=== PATIENT | female | born 1965 | race Caucasian/White ===

== ENCOUNTER 2021-11-19 13:32 | Emergency (ER) | payer BC ==
--- OUTSIDE RECORDS SUMMARY | 2021-11-19 13:36 | XMS REPORT | Continuity of Care Document ---
:1965 Author Organization [facility] t Address [address] [place] [address] Care Team Providers Name Role Phone Pcp, Does Not Have A Primary Care Physician Rohith DERAS M Attending Clinician DEREK Attending Clinician Unavailable DEREK Attending Clinician Unavailable Meet Jacobo Attending Clinician Ricky REGISTERED RADIOGRAPHER Attending Clinician RICKY Attending Clinician Unavailable Doctor Unassigned, Name Attending Clinician Unavailable DEREK Admitting Clinician Unavailable Payers Payer Name Policy Type Policy Number Effective Date Expiration Date S ource Problems Condition Condition Condition Status Onset Resolution Last Treating Co mments Source Name Details Category Date Date Treatment Clinician Date Complicate Complicate Disease Active U nivers d UTI d UTI 10-30 ity of (urinary (urinary 00:00: [place] tract tract 00 Medical infection) infection) Br anch No known No known Disease Unive rs active active ity of problems problems [facility] Allergies, Adverse Reactions, Alerts Allergy Allergy Status Severity Reaction(s) Onset Inactive Treating Comm ents Source Name Type Date Date Clinician SULFA Drug Active High Rash Univers (SULFONA Class 5-31 ity of MIDE 00:00: [place] ANTIBIOT 00 Medical ICS) Branch Sulfa Propensi Active Rash Univers (Sulfona ty to 5-31 ity of mide adverse 00:00: [place] Antibiot reaction 00 Medica l ics) s Branch NO KNOWN Drug Active Univers ALLERGIE Class ity of S [facility] Social History Social Habit Start Date Stop Date Quantity Comments Source Exposure to 2021-10-20 2021-10-30 Unable to assess Univers ity of SARS-CoV-2 00:00:00 11:49:00 [facility] (event) Assawoman Sex Ass[birth year] Universit y of 00:00:00 00:00:00 [facility] Smoking Status Start Date Stop Date Source Unknown if ever smoked [facility] Medications Ordered Filled Start Stop Current Ordering Indication Dosage Frequency Signature Comments Components Source Medication Medication Date Date Medication? Clinician (SIG) Name Name KCL 20 2021-0 2021- No 40meq 40 mEq, Univer s mEq/15 mL 10-31 Oral, ity of solution 40 15:15: 15:30 [place]CE, 1 [place] mEq 00 :00 dose, On Medical Fri10/31/21 Branch at 1015, Routine enoxaparin Yes 40mg 40 mg, Unive rs (LOVENOX) 10-31 Subcutaneo ity of injection 14:00: [place], [place]ILY, [place] 40 mg 00 First dose Medical on Fri Branch 10/31/21 at 0900, Until Discontinu ed, Routine dextrose Yes 250mL 250 mL, IV Un sienna 10% (D10W) 10-31 Infusion, ity of bolus 11:15: PRN - SEE [place] infusion 16 INSTRUCTIO Medic al 250 mL NS, Branch hypoglycem ia, Starting on Fri10/31/21 at 0615
De xtrose 10% 250 mL bag contains:& nbsp;10 gm = 100 mL 20 gm = 200 mL 25 gm = 250 mL (whole bag) The maximum rate at which dextrose can be infused without producing glycosuria is 0.5 g/kg/hour. &nbs p;BUD: If wrapper is open bag is good for 30 days at room temperatur e. <b r> glucagon Yes 1mg 1 mg, Univers (GLUCAGEN 10-31 Intramuscu ity of DIAGNOSTIC 11:15: [place], PRN, [place] KIT) 13 Starting Medical injection 1 on Fri Branch mg 10/31/21 at 0615, Until Discontinu ed, [place], Blood Glucose < or = 70 mg/dL and patient is unable to swallow or has mental changes. cefdinir 2021- Yes [id number] 300mg Take 1 U nivers 300 mg 10-31 capsule by ity of capsule 00:00: 04:59 mouth [place] 00 :00 every 12 Medical (twelve) Branch hours for 5 days. cefdinir 2021- Yes [id number] 300mg Take 1 U nivers 300 mg 10-31 capsule by ity of capsule 00:00: 04:59 mouth [place] 00 :00 every 12 Medical (twelve) Branch hours for 5 days. NaCl 0.9% Yes 1000mL at 125 Univ ers (NS) IV 5-31 mL/hr, IV ity of infusion 23:45: In[place] 1,000 mL 00 CONTINUOUS Medic al , Starting Branch on 10/30/21 at 1845, Until Discontinu ed, Routine LORazepam Yes .5mg 0.5 mg, Unive rs (ATIVAN) 10-30 Oral, ity of tablet 0.5 23:44: TIDPRN[place] mg 00 Starting Medical on [facility] 10/30/21 at 1844, Until Discontinu ed, Routine, Anxiety ondansetron Yes 4mg 4 mg, Slow Univers (ZOFRAN 10-30 IV Push, ity of (PF)) 23:34: Q6HPRN, [place] injection 4 17 Starting Medi kristi mg on [facility] 10/30/21 at 1834, Until Discontinu ed, Routine, Nausea and Vomiting (N/V) morpHINE (4 2021- Yes 4mg 4 mg, Slow Univers mg/mL) 10-30 IV Push, ity of injection 4 23:34: 23:33 Q4HPRN, [place] mg 15 :15 Starting Medical on [facility] 10/30/21 at 1834, Until Fri10/31/21 at 1833, Routine, Pain (scale 7-10) HYDROcodone 2021- Yes 1{tbl} 1 tablet, Univers -acetaminop 10-30 Oral, ity of hen (NORCO 23:34: 23:33 Q6HPRN, [place] 5) 5-325 mg 12 :12 Starting Medi kristi tablet 1 on [facility] tablet 10/30/21 at 1834, Until [place] 11/01/21 at 1833, Routine, Pain (scale 4-6) acetaminoph Yes 650mg 650 mg, Un sienna en 10-30 Oral, ity of (TYLENOL) 23:34: [place] tablet 650 09 Starting Medic al mg on [facility] Branch 10/30/21 at 1834, Until Discontinu ed, Routine, Pain (scale 1-3) NaCl 0.9% 2021- No 1000mL at 100 Uni vers (NS) IV 10-3031 mL/hr, IV ity of infusion 22:15: 21:21 Infusion, [place] 1,000 mL 00 :00 ONCE, 1 Medical dose, On Branch Fri10/30/21 at 1715, [place] cefTRIAXone 2021- No 1000mg 1,000 mg, Univers (ROCEPHIN) 10-30 IV ity of 1,000 mg in 20:00: 19:52 [place], [place] NaCl 0.9% 00 :00 ONCE, 1 Medical (NS) 50 mL dose, On [facility] h MINI-BAG [facility] 10/30/21 at 1500, Administer over 30 Minutes, 50 mL
Reas on for Anti-Infec tive: Documented Infection< br>Documen mague Infection Site: Urine<br&g t;Duration of Therapy: Other (see Comments) NaCl 0.9% 2021- No 1000mL at 999 Uni vers (NS) bolus 10-30 mL/hr, ity of infusion 20:00: 21:10 1,000 mL, [place] 1,000 mL 00 :00 IV Medical Infusion, Branch ONCE, 1 dose, On Fri10/30/21 at 1500, [place] No known No Univers medications 10-30 ity of 09:59: [address] No known 0 No Univers medications 10-30 ity of 09:59: [address] Immunizations Ordered Filled Immunization Date Status Comments Sour e Immunization Name Name SARS-COV-2 COVID-19 2020-08-10 [facility]/J&J VACCINE 00:00:00 [place] [facility] SARS-COV-2 COVID-19 2020-08-10 Completed Unive rsity of ALTAGRACIA/J&J VACCINE 00:00:00 [facility] SARS-COV-2 COVID-19 2020-08-10 Completed Unive rsity of ALTAGRACIA/J&J VACCINE 00:00:00 [facility] SARS-COV-2 COVID-19 2020-08-10 Completed Unive rsity of ALTAGRACIA/J&J VACCINE 00:00:00 [facility] Vital Signs Vital Name Observation Time Observation Value Comments Source Systolic blood 2021-10-31 13:42:00 106 mm[Hg] Univer sity of pressure [facility] Diastolic blood 2021-10-31 13:42:00 75 mm[Hg] Unive rsity of pressure [facility] Heart rate 2021-10-31 13:42:00 95 /min Universi ty [facility] Body temperature 2021-10-31 13:42:00 36.83 [facility] ers[facility] of [facility] Respiratory rate 2021-10-31 13:42:00 18 /min Univ ersity of [facility] Oxygen saturation in 2021-10-31 13:42:00 99 /min University of Arterial blood by [place] [employer] [facility] Pulse oximetry Branch Body height 2021-10-30 23:06:00 167.6 cm [facility] Body weight 2021-10-30 23:06:00 48.535 kg [facility] BMI 2021-10-30 23:06:00 17.27 kg/m2 [facility] Heart rate 2021-10-30 15:29:00 122 /min [facility] Oxygen saturation in 2021-10-30 15:29:00 97 /min University of Arterial blood by [place] [employer] [facility] Pulse oximetry Branch Systolic blood 2021-10-30 14:57:00 119 mm[Hg] Univer sity of pressure [facility] Diastolic blood 2021-10-30 14:57:00 88 mm[Hg] Unive rsity of pressure [facility] Body temperature 2021-10-30 14:57:00 36.67 [facility] ers[facility] Respiratory rate 2021-10-30 14:57:00 19 /min Univ ersity of [facility] Body height 2021-10-30 14:57:00 167.6 cm [facility] Body weight 2021-10-30 14:57:00 48.535 kg [facility] BMI 2021-10-30 14:57:00 17.27 kg/m2 [facility] Procedures Procedure Date / Time Performed Performing Clinician Sourc e POCT GLUCOSE 2021-10-31 11:50:[facility] BASIC METABOLIC PANEL 2021-10-31 10:18:00 Reynaldo Reed [facility] (NA, K, CL, CO2, Medical Branch GLUCOSE, BUN, CREATININE, CA) CBC WITH DIFF 2021-10-31 10:18[facility] 2021-10-31 [facility] 2021-10-31 01:37[facility] LACT[facility] WHOLE 2021-10-31 01:37:00 Derek Reynaldo [facility] Branch CT ABDOMEN PELVIS WO 2021-10-31 00:58:[facility] COMP. METABOLIC PANEL 2021-10-30 17:42:00 Rachel Levin [facility] ([id number]) Medical [place] CBC WITH DIFF 2021-10-30 17:42:00 Rachel Levin [facility] URINALYSIS 2021-10-30 17:42:00 Rachel Levin [facility] NOTICE OF PRIVACY 2021-10-30 16:50:26 Doctor Unassigned, No Univ [facility] PRACTICES Name Medical [place] CONSENT/REFUSAL FOR 2021-10-30 16:49:35 Doctor Unassigned, No [facility] AND Name Medical Branch TREATMENT Encounters Start End Encounter Admission Attending Care Care Encounter Source Date/Time Date/Time Type Type Clinicians Facility Department ID 2021-11-01 2021-11-01 Transition FANY [place] [id number] [facility] 00:00:00 00:00:00 of Care Ellie AVILA [id number] i ty of [id number] [id number] [facility] 403 Branch 2021-10-30 2021-10-31 Inpatient U REYNALDO REED [facility] [id number] Univers 12:03:00 11:37:00 REYNALDO REED ity of [facility] 2021-10-30 2021-10-31 [facility] Rachel Levin [facility] [id number] Univers 12:03:00 11:37:00 Encounter Reynaldo Reed [facility] [id number]. 10 ity of [facility] [id number] [place] [facility] [id number] [address] ([facility]) 2021-10-31 2021-10-31 Outpatient [facility] [id number] Univers 10:00:00 10:00:00 [id number] ity of [facility] 2021-10-30 2021-10-30 Urgent [facility] [id number] Univers 09:40:00 10:00:00 Care Carley [facility] [id number] i ty of [place] 4.2.7.2.686 [place] RICKI?BLEA [id number] [address] MEDICAL OFFICE BUILDING 2021-10-30 2021-10-[address] [facility] [id number] Univers 09:40:00 09:40:00 CARLEY ity o f [facility] 2021-10-30 2021-10-30 Orders Doctor KEERTHI [id number] Univers 00:00:00 00:00:00 Only Unassigned, MARTÍN [id number] ity of [place] [facility] [id number] [place] [id number] [address] Results Test Description Test Time Test Comments Results Result Comments Source POCT GLUCOSE (AUTOMATED) 2021-10-31 11:51:54 Test Item Value Reference Range Interpretation Comme nts POCT GLU (test code = 7919406006) 90 mg/dL 70-110 Lab Interpretation (test code = 87156-9) Normal [facility] Met[facility] (NA, K, CL, CO2, GLUCOSE, BUN, CREATININE, CA)2021-10-31 11:15:16 Test Item Value Reference Range Interpretation Comments NA (test code = 135 mmol/L 135-145 1376100391) K (test code = 3.3 mmol/L 3.5-5.0 L 0307725988) CL (test code = 105 mmol/L 98-108 6240709293) CO2 TOTAL (test code = 13 mmol/L 23-31 L 9628856362) AGAP (test code = 2-16 H 8590151087) BUN (test code = 12 mg/dL 7-23 8011869479) GLUCOSE (test code = 49 mg/dL 70-110 LL 7459021853) CREATININE (test code = 0.78 mg/dL 0.50-1.04 6131397936) CALCIUM (test code = 6.7 mg/dL 8.6-10.6 L 0940992385) eGFR (test code = mL/min/1.73m2 3459331476) KELVIN (test code = KELVIN) Association of Glomerular Filtration Rate (GFR) and Staging of Kidney Disease* + --+ --+ ------+| GFR (mL/min/1.73 m2) ?| With Kidney Damage ?| ?Without Kidney Damage+ --------+ --------+ +| ?>90 ?| ?Stage one ?| ? Normal ?+ ---+ ---+ -------+| ?60-89 ?| ?Stage two ?| ? Decreased GFR ? + --+ --+ ------+| ?30-59 ?| ?Stage three ?| ? Stage three ? + --+ --+ ------+| ?15-29 ?| ?Stage four ? | ? Stage four ?+ ---+ ---+ -------+| ?<15 (or dialysis) ? ?| ?Stage five ? | ? Stage five ?+ ---+ ---+ -------+ *Each stage assumes the associated GFR level has been in effect for at least three months. ?Stages 1 to 5, with or without kidney disease, indicate chronic kidney disease. Notes: Determination of stages one and two (with eGFR >59mL/min/1.73 m2) requires estimation of kidney damage for at least three months as defined by structural or functional abnormalities of the kidney, manifested by either:Pathological abnormalities or Markers of kidney damage (including abnormalities in the composition of the blood or urine or abnormalities in imaging tests). Lab Interpretation Abnormal (test code = 64658-5) [facility] with [id number] 10:39:09 Test Item Value Reference Range Interpretation Comments WBC (test code = See_Comment [Automated 6690-2) message] The sy stem which generated this result transmitted reference range : 4.30 - 11.10 10*3/?L. The reference range was not used to interpret this result as normal/abnormal . RBC (test code = See_Comment L [Automated 789-8) message] The sy stem which generated this result transmitted reference range : 3.93 - 5.25 10*6/?L. The reference range was not used to interpret this result as normal/abnormal . HGB (test code = 7.8 g/dL 11.6-15.0 L 718-7) HCT (test code = 23.9 % 35.7-45.2 L 4544-3) MCV (test code = 96.4 fL 80.6-95.5 H 787-2) MCH (test code = 31.5 pg 25.9-32.8 785-6) MCHC (test code = 32.6 g/dL 31.6-35.1 786-4) RDW-SD (test code = 48.1 fL 39.0-49.9 28045-7) RDW-CV (test code = 13.7 % 12.0-15.5 788-0) PLT (test code = See_Comment L [Automated 777-3) message] The sy stem which generated this result transmitted reference range : 166 - 358 10*3/ ?L. The reference r angi was not used to interpret this result as normal/abnormal . MPV (test code = 11.0 fL 9.5-12.9 23109-0) NRBC/100 WBC (test See_Comment [Automat ed code = 9908397139) message] The system which generated this result transmitted reference range : 0.0 - 10.0 /100 WBCs. The refer ence range was not u sed to interpret th is result as normal/abnormal . NRBC x10^3 (test code See_Comment [Auto mated = 4028977908) message] The s ystem which generated this result transmitted reference range : 10*3/?L. The reference range was not used to interpret this result as normal/abnormal . GRAN MAT (NEUT) % 69.5 % (test code = 770-8) IMM GRAN % (test code 0.80 % = 9580449057) LYMPH % (test code = 17.9 % 736-9) MONO % (test code = 6.3 % 5905-5) EOS % (test code = 4.4 % 713-8) BASO % (test code = 1.1 % 706-2) GRAN MAT x10^3(ANC) 3.31 10*3/uL 1.88-7.09 (test code = 7653252842) IMM GRAN x10^3 (test 0.04 10*3/uL 0.00-0.06 code = 5590497877) LYMPH x10^3 (test code 0.85 10*3/uL 1.32-3.29 L = 731-0) MONO x10^3 (test code 0.30 10*3/uL 0.33-0.92 L = 742-7) EOS x10^3 (test code = 0.21 10*3/uL 0.03-0.39 711-2) BASO x10^3 (test code 0.05 10*3/uL 0.01-0.07 = 704-7) Lab Interpretation Abnormal (test code = 12160-0) [facility] [id number] 01:44:07 Test Item Value Reference Range Interpretation Comments LACTIC ACID (test code = 1.18 mmol/L 0.50-2.20 9205991339) Lab Interpretation (test code = Normal 57762-7) [facility] (53460)2021-10-30 18:41:20 Test Item Value Reference Range Interpretation Comments NA (test code = 132 mmol/L 135-145 L 9404075271) K (test code = 4.4 mmol/L 3.5-5.0 7947686376) CL (test code = 92 mmol/L 98-108 L 5068464149) CO2 TOTAL (test code = 13 mmol/L 23-31 L 9839233218) AGAP (test code = 2-16 H 7806220687) BUN (test code = 14 mg/dL 7-23 1516445896) GLUCOSE (test code = 110 mg/dL 70-110 5314930840) CREATININE (test code = 1.17 mg/dL 0.50-1.04 H 8846697414) TOTAL BILI (test code = 1.0 mg/dL 0.1-1.9 4497289598) CALCIUM (test code = 7.9 mg/dL 8.6-10.6 L 8534340348) T PROTEIN (test code = 6.8 g/dL 6.3-8.2 5660898282) ALBUMIN (test code = 3.8 g/dL 3.5-5.0 7758590217) ALK PHOS (test code = 119 U/L 34-122 5181945161) ALTv (test code = 20 U/L 5-35 1742-6) AST(SGOT) (test code = 49 U/L 13-40 H 7617312313) eGFR (test code = mL/min/1.73m2 0481833380) KELVIN (test code = KELVIN) Association of Glomerular Filtration Rate (GFR) and Staging of Kidney Disease* + --+ --+ ------+| GFR (mL/min/1.73 m2) ?| With Kidney Damage ?| ?Without Kidney Damage+ --------+ --------+ +| ?>90 ?| ?Stage one ?| ? Normal ?+ ---+ ---+ -------+| ?60-89 ?| ?Stage two ?| ? Decreased GFR ? + --+ --+ ------+| ?30-59 ?| ?Stage three ?| ? Stage three ? + --+ --+ ------+| ?15-29 ?| ?Stage four ? | ? Stage four ?+ ---+ ---+ -------+| ?<15 (or dialysis) ? ?| ?Stage five ? | ? Stage five ?+ ---+ ---+ -------+ *Each stage assumes the associated GFR level has been in effect for at least three months. ?Stages 1 to 5, with or without kidney disease, indicate chronic kidney disease. Notes: Determination of stages one and two (with eGFR >59mL/min/1.73 m2) requires estimation of kidney damage for at least three months as defined by structural or functional abnormalities of the kidney, manifested by either:Pathological abnormalities or Markers of kidney damage (including abnormalities in the composition of the blood or urine or abnormalities in imaging tests). Lab Interpretation Abnormal (test code = 98264-0) [facility] WITH [id number] 18:05:30 Test Item Value Reference Range Interpretation Comments WBC (test code = See_Comment [Automated 6690-2) message] The sy stem which generated this result transmitted reference range : 4.30 - 11.10 10*3/?L. The reference range was not used to interpret this result as normal/abnormal . RBC (test code = See_Comment L [Automated 789-8) message] The sy stem which generated this result transmitted reference range : 3.93 - 5.25 10*6/?L. The reference range was not used to interpret this result as normal/abnormal . HGB (test code = 9.6 g/dL 11.6-15.0 L 718-7) HCT (test code = 29.4 % 35.7-45.2 L 4544-3) MCV (test code = 97.0 fL 80.6-95.5 H 787-2) MCH (test code = 31.7 pg 25.9-32.8 785-6) MCHC (test code = 32.7 g/dL 31.6-35.1 786-4) RDW-SD (test code = 47.8 fL 39.0-49.9 33670-8) RDW-CV (test code = 13.5 % 12.0-15.5 788-0) PLT (test code = See_Comment [Automated 777-3) message] The sy stem which generated this result transmitted reference range : 166 - 358 10*3/ ?L. The reference r angi was not used to interpret this result as normal/abnormal . MPV (test code = 11.7 fL 9.5-12.9 99868-5) NRBC/100 WBC (test See_Comment [Automat ed code = 1382214737) message] The system which generated this result transmitted reference range : 0.0 - 10.0 /100 WBCs. The refer ence range was not u sed to interpret th is result as normal/abnormal . NRBC x10^3 (test code See_Comment [Auto mated = 9855247344) message] The s ystem which generated this result transmitted reference range : 10*3/?L. The reference range was not used to interpret this result as normal/abnormal . GRAN MAT (NEUT) % 78.0 % (test code = 770-8) IMM GRAN % (test code 0.70 % = 7089839726) LYMPH % (test code = 11.7 % 736-9) MONO % (test code = 8.7 % 5905-5) EOS % (test code = 0.1 % 713-8) BASO % (test code = 0.8 % 706-2) GRAN MAT x10^3(ANC) 6.00 10*3/uL 1.88-7.09 (test code = 2746374800) IMM GRAN x10^3 (test 0.05 10*3/uL 0.00-0.06 code = 6876374336) LYMPH x10^3 (test code 0.90 10*3/uL 1.32-3.29 L = 731-0) MONO x10^3 (test code 0.67 10*3/uL 0.33-0.92 = 742-7) EOS x10^3 (test code = <0.03 0.03-0.39 L 711-2) BASO x10^3 (test code 0.06 10*3/uL 0.01-0.07 = 704-7) Lab Interpretation Abnormal (test code = 57279-3) [facility]"
[2021-11-19 14:33] LABS: Absolute Lymphocytes (CBC) 1.5 K/uL (0.7-4.9); Hematocrit 27.8 % (36.0-45.0); RBC Red Blood Cell Count 2.99 M/uL (3.86-4.86)
[2021-11-19 14:57] LABS: Potassium 3.8 mmol/L (3.5-5.1); Troponin High Sensitivity 6.7 pg/mL (<58.9)
--- NOTE | 2021-11-19 14:58 | RAD REPORT ---
EXAM DESCRIPTION: RAD - Chest Single View - 11/19/2021 2:38 pm CLINICAL HISTORY: generalized weakness COMPARISON: <Comparisons> FINDINGS: Lines: None. Lungs: No evidence of edema or pneumonia. Pleural: No significant pleural effusions or pneumothorax. Cardiac: The heart size is within normal limits. Bones: No acute fractures. Other: IMPRESSION: No acute cardiopulmonary disease.
[2021-11-19] MEDS ORDERED: NA CHLORIDE 0.9% 1,000 ML ONE (17:46)
--- NOTE | 2021-11-19 20:00 | RAD REPORT ---
EXAM DESCRIPTION: CT - Head Brain Wo Cont - 11/19/2021 7:44 pm CLINICAL HISTORY: Weakness COMPARISON: No comparisonsNo comparisons TECHNIQUE: All CT scans are performed using dose optimization technique as appropriate and may inclu de automated exposure control or mA/KV adjustment according to patient size. FINDINGS: No intracranial hemorrhage, hydrocephalus or extra-axial fluid collection.No areas of brai n edema or evidence of midline shift. Mild chronic small vessel ischemic changes. Cerebral atrophy. Mucosal thickening in left maxillary sinus. The calvarium is intact. IMPRESSION: No acute intracranial abnormality.
[2021-11-19 20:03] LABS: Bilirubin Direct 0.3 mg/dL (0-0.2); Bilirubin Total 0.9 mg/dL (0.2-1.0); Protein, Total 6.3 g/dL (6.4-8.2)
--- NOTE | 2021-11-19 21:23 | ER ---
Nurse's Notes [facility] Name: Kerri Johnston Age: 56 yrs Sex: Female : 1965 Arrival Date: 11/19/2021 Time: 13:41 Bed 11 Private MD: Diagnosis: Dehydration;Nutritional deficiency, unspecified;Weakness;Diarrhea, unspecified Presentation: 11/19 14:11 Chief complaint: Patient states: generalized weakness since having a UTI 3 weeks ago. aa5 Pt also reports diarrhea and not eating much x 3 weeks ago. Reports she fell onto her knees today. Denies pain. Pt has 20G to L wrist by EMS and was given 1000cc bolus LR en route, EMS reports 130HR and now 96HR after bolus. Coronavirus screen: diarrhea. Ebola Screen: Patient denies travel to an Ebola-affected area in the 21 days before illness onset. Initial Sepsis Screen: Does the patient meet any 2 criteria? HR > 90 bpm. Does the patient have a suspected source of infection? No. Patient's initial sepsis screen is negative. Risk Assessment: Do you want to hurt yourself or someone else? Patient reports no desire to harm self or others. Onset of symptoms was November 19, 2021. 14:11 Method Of Arrival: EMS: [facility] aa5 14:11 Acuity: BRANDT 3 aa5 Historical: - Allergies: 14:13 Sulfa (Sulfonamide Antibiotics); aa5 - PMHx: 14:13 None; aa5 - PSHx: 14:13 None; aa5 - Immunization history:: Adult Immunizations unknown. - Social history:: Smoking status: Patient denies any tobacco usage or history of. Screenin:43 Abuse screen: Denies threats or abuse. Denies injuries from another. Nutritional ld1 screening: No deficits noted. Tuberculosis screening: No symptoms or risk factors identified. Fall Risk None identified. Assessment: 17:43 Reassessment: Patient appears in no apparent distress at this time. General: Appears in ld1 no apparent distress. comfortable, Behavior is calm, cooperative, appropriate for age. Pain: Denies pain. Neuro: Level of Consciousness is awake, alert, obeys commands, Oriented to person, place, time, situation. Cardiovascular: Capillary refill < 3 seconds Patient's skin is warm and dry. Rhythm is regular. Respiratory: Airway is patent Respiratory effort is even, unlabored. 18:33 Reassessment: Patient appears in no apparent distress at this time. Patient and/or ld1 family updated on plan of care and expected duration. Pain level reassessed. Patient is alert, oriented x 3, equal unlabored respirations, skin warm/dry/pink. 20:30 Reassessment: Patient is alert, oriented x 3, equal unlabored respirations, skin bb warm/dry/pink. awaiting disposition from ED provider. Vital Signs: 14:11 BP 126 / 94; Pulse 116; Resp 14 S; Temp 98.8(TE); Pulse Ox 97% on R/A; Weight 49.9 kg aa5 (R); Height 5 ft. 6 in. (167.64 cm) (R); 17:43 BP 122 / 83; Pulse 86; Resp 18; Pulse Ox 100% on R/A; ld1 18:33 BP 129 / 80; Pulse 81; Resp 18; Pulse Ox 100% on R/A; ld1 14:11 Body Mass Index 17.75 (49.90 kg, 167.64 cm) aa5 ED Course: 13:41 Patient arrived in ED. am2 14:10 Arm band placed on. aa5 14:13 Triage completed. aa5 14:28 Initial lab(s) drawn, by me, sent to lab. Maintain EMS IV. Dressing intact. Good blood aa5 return noted. Site clean \T\ dry. Gauge \T\ site: 20G L wrist. 14:31 EKG completed in triage. Results shown to MD. aa5 14:39 XRAY Chest (1 view) In Process Unspecified. EDMS 15:14 EKG done, by ED staff, reviewed by Harrison Pena MD. mb7 16:49 Cameron Astorga NP is PHCP. pm1 16:49 Harrison Pena MD is Attending Physician. pm1 17:43 Patient has correct armband on for positive identification. Placed in gown. Bed in low ld1 position. Call light in reach. Side rails up X2. front desk monitor on. Pulse ox on. NIBP on. Door closed. Noise minimized. Warm blanket given. 17:43 No provider procedures requiring assistance completed. ld1 18:33 Kasey Lora, BRAEDEN is Primary Nurse. ld1 19:46 CT Head Brain wo Cont In Process Unspecified. EDMS Administered Medications: 17:43 Drug: NS 0.9% 1000 ml Route: IV; Rate: 1000 ml; Site: left wrist; ld1 Outcome: 21:22 Discharge ordered by MD. pm1 22:19 Patient left the ED. mw2 Signatures: Dispatcher [employer] EDMS Bernie Lloyd RN RN bb Tamika Quiñones RN RN aa5 Cameron Astorga, GLASS BELT SANDER GLASS BELT SANDER pm1 Saida Medellin am2 Ana Vogt mw2 Kasey Lora RN RN ld1 Nguyen Narvaez mb7
--- NOTE | 2021-11-19 21:23 | EDPHYS ---
Physician Documentation [facility] Name: Kerri Johnston Age: 56 yrs Sex: Female : 1965 Arrival Date: 11/19/2021 Time: 13:41 Bed 11 Private MD: ED Physician Harrison Pena HPI: 11/19 16:09 This 56 yrs old Female presents to ER via EMS with complaints of General Weakness. pm1 16:09 The patient presents to the emergency department with weakness of the entire body, pm1 generalized weakness. Onset: The symptoms/episode began/occurred 3 week(s) ago, post urinary tract infection. Patient was admitted 3 weeks ago for dehydration and urinary tract infection and another hospital. She was discharged after 2 days and sent home with antibiotics. Patient reports poor p.o. intake along with diarrhea and increasing generalized weakness. Today patient with fall onto her knees. No pain to her knees or fall injury. Associated signs and symptoms: Pertinent positives: Diarrhea, Pertinent negatives: fever, headache, nausea, Vomiting. Severity of symptoms: in the emergency department the symptoms are worse. Patient's baseline: Neuro: alert and fully oriented, Motor: no deficits, Ambulation: walks without assistance. Current symptoms: Generalized weakness to lower extremities. The patient has not experienced similar symptoms in the past. The patient has been recently seen by a physician: 3 weeks ago for dehydration and UTI. Patient has not followed up with a PCP post discharge. Patient does not have a PCP. Historical: - Allergies: 14:13 Sulfa (Sulfonamide Antibiotics); aa5 - PMHx: 14:13 None; aa5 - PSHx: 14:13 None; aa5 - Immunization history:: Adult Immunizations unknown. - Social history:: Smoking status: Patient denies any tobacco usage or history of. ROS: 16:09 Constitutional: Negative for fever, chills, and weight loss, Cardiovascular: Negative pm1 for chest pain, palpitations, and edema, Respiratory: Negative for shortness of breath, cough, wheezing, and pleuritic chest pain. 16:09 Back: Negative for injury and pain, MS/Extremity: Negative for injury and deformity, Skin: Negative for injury, rash, and discoloration. 16:09 Abdomen/GI: Positive for diarrhea, Negative for abdominal pain, nausea and vomiting. 16:09 Neuro: Positive for generalized weakness, Negative for headache. 16:09 All other systems are negative. Exam: 16:09 Head/Face: Normocephalic, atraumatic. pm1 16:09 Back: No spinal tenderness. No costovertebral tenderness. Full range of motion. Skin: Warm, dry with normal turgor. Normal color with no rashes, no lesions, and no evidence of cellulitis. MS/ Extremity: Pulses equal, no cyanosis. Neurovascular intact. Full, normal range of motion. 16:09 Constitutional: The patient appears in no acute distress, alert, awake, comfortable, non-diaphoretic, non-toxic, well developed, well hydrated, well groomed, emaciated. 16:09 Cardiovascular: Exam negative for acute changes, Rate: normal, Rhythm: regular, Pulses: no pulse deficits are appreciated, Heart sounds: normal. 16:09 Respiratory: Exam negative for acute changes, respiratory distress, shortness of breath, Breath sounds: are clear throughout. 16:09 Abdomen/GI: Exam negative for acute changes, Inspection: abdomen appears normal, Palpation: abdomen is soft and non-tender, in all quadrants. 16:09 Neuro: Exam negative for acute changes, Orientation: is normal, Mentation: is normal, Motor: is normal, moves all fours. Vital Signs: 14:11 BP 126 / 94; Pulse 116; Resp 14 S; Temp 98.8(TE); Pulse Ox 97% on R/A; Weight 49.9 kg aa5 (R); Height 5 ft. 6 in. (167.64 cm) (R); 17:43 BP 122 / 83; Pulse 86; Resp 18; Pulse Ox 100% on R/A; ld1 18:33 BP 129 / 80; Pulse 81; Resp 18; Pulse Ox 100% on R/A; ld1 14:11 Body Mass Index 17.75 (49.90 kg, 167.64 cm) aa5 MDM: 16:55 Patient medically screened. [facility] 21:19 Data reviewed: vital signs. Data interpreted: Pulse oximetry: on room air is 100 %. pm1 Interpretation: normal. Counseling: I had a detailed discussion with the patient and/or guardian regarding: the historical points, exam findings, and any diagnostic results supporting the discharge/admit diagnosis, lab results, radiology results, the need for outpatient follow up, to return to the emergency department if symptoms worsen or persist or if there are any questions or concerns that arise at home. 21:29 ED course: Discussed at length with the patient regarding nutrition. Patient was pm1 primarily vegan/vegetarian without understanding macro nutrition. Suspect patient with low protein intake and illness combined with diarrhea and poor p.o. intake resulted in muscle wasting and generalized weakness. Recommended for patient to follow-up with a primary care provider and request consultation with senior core java developer and physical therapy. Offered patient rehab consultation for admission to rehabilitation center but patient refused. Patient will go home to improve nutrition and follow-up with a PCP for PT. 11/19 14:19 Order name: Basic Metabolic Panel; Complete Time: 17:32 ld11/19 14:19 Order name: CBC with Diff; Complete Time: 16:01 11/19 14:19 Order name: Troponin HS; Complete Time: 17:32 ld11/19 18:09 Order name: TSH; Complete Time: 20:11 pm11/19 18:47 Order name: LFT's; Complete Time: 20:11 pm11/19 14:11 Order name: XRAY Chest (1 view); Complete Time: 16:01 11/19 14:11 Order name: EKG; Complete Time: 14:11 11/19 14:11 Order name: Cardiac monitoring; Complete Time: 16:58 11/19 14:11 Order name: EKG - Nurse/Tech; Complete Time: 14:29 11/19 14:11 Order name: IV Saline Lock; Complete Time: 14:19 11/19 14:11 Order name: Labs collected and sent; Complete Time: 14:19 11/19 18:08 Order name: CT Head Brain wo Cont; Complete Time: 20:11 pm11/19 14:11 Order name: O2 Per Protocol; Complete Time: 16:58 11/19 14:11 Order name: O2 Sat Monitoring; Complete Time: 16:58 aa5 Administered Medications: 17:43 Drug: NS 0.9% 1000 ml Route: IV; Rate: 1000 ml; Site: left wrist; ld1 Disposition Summary: 11/19/21 21:22 Discharge Ordered Location: Home pm1 Problem: new pm1 Symptoms: have improved pm1 Condition: Stable pm1 Diagnosis - Dehydration pm1 - Nutritional deficiency, unspecified pm1 - Weakness pm1 - Diarrhea, unspecified pm1 Followup: pm1 - With: Emergency Department - When: As needed - Reason: Worsening of condition Followup: pm1 - With: Private Physician - When: 2 - 3 days - Reason: Recheck today's complaints, Continuance of care, Re-evaluation by your physician Discharge Instructions: - Discharge Summary Sheet pm1 - Food Choices to Help Relieve Diarrhea, Adult pm1 - Dehydration, Adult pm1 - Diarrhea, Adult pm1 - Weakness pm1 - Protein-Energy Malnutrition pm1 - Rehydration, Adult pm1 Forms: - Medication Reconciliation Form pm1 - Thank You Letter pm1 - Antibiotic Education pm1 - Prescription Opioid Use pm1 Signatures: Dispatcher [employer] EDMS Harrison Pena MD MD cha Calderon, Audri, RN RN aa5 Cameron Astorga NP [employer]ET[employer]OP[employer] pm1 Kasey Lora RN RN ld1
[2021-11-19 22:59] VITALS: TEMP 98.8
[2021-11-19 23:00] VITALS: O2SAT 100
[2021-11-19 23:01] VITALS: BP 129/80
--- NOTE | 2021-11-21 07:25 | EKG ---
Test Date: 2021-11-19 Test Time: 14:28:16 Smoke Jumper: MB MEASUREMENT RESULTS: Intervals: Rate: 108 CO: 154 QRSD: 80 QT: 342 QTc: 458 Parsons: P: 69 CO: 154 QRS: 75 T: 48 INTERPRETIVE STATEMENTS: Sinus tachycardia Possible Anterior infarct, age undetermined Abnormal ECG No previous ECG available for comparison Electronically Signed On 11-21-21 07:19:38 CDT by Tolu Casiano
== END 2021-11-19 22:19 | disposition home or self-care (01) ==
LOC: ER 13:32
DX: E86.0 Dehydration (principal); E63.9 Nutritional deficiency, unspecified; R19.7 Diarrhea, unspecified; Z88.2 Allergy status to sulfonamides
CPT/HCPCS: 93005; 85025; 80048; 36415; 80076; 84443; 84484; 70450; 71045; J7030; 99284